=== PATIENT | male | born 1980 | race Caucasian/White ===

== ENCOUNTER → 2019-05-01 | Outpatient (CLI) | payer BC ==
[2012-04-28 22:18] VITALS: BP 159/97
[~2019-05-01] MED LIST: ATIVAN0.5 MG PO; BENADRYL50 MG PO; PREDNISONE10 MG; PROZAC40 MG PO
[2019-05-01 09:13] LABS: EOS # 0.1 (0.04-0.40); EOS % 1.7 % (0.0-4.0); HEMATOCRIT 45.9 % (42.0-52.0); HEMOGLOBIN 15.3 g/dL (13.5-18.0); MEAN CELL VOLUME 91 fl (78-100); MEAN CORPUSCULAR HEMOGLOBIN 30 pg (27-31); MEAN CORPUSCULAR HGB CONC 33 g/dL (33-37); MEAN PLATELET VOLUME 9.6 fl (7.4-10.4); MONO # 0.9 (0.20-0.80); NEU # 5.3 (1.40-6.50); PLATELET COUNT 250 K/mm3 (130-400); RED BLOOD COUNT 5.06 M/mm3 (4.20-5.60); RED CELL DISTRIBUTION WIDTH 13.2 % (11.5-14.5); WHITE BLOOD COUNT 8.3 K/mm3 (4.8-10.8)
[2019-05-01 09:19] LABS: POTASSIUM 4.3 mmol/L (3.5-5.1)
[2019-05-01 09:20] LABS: ALBUMIN 4.3 g/dL (3.5-5.0)
[2019-05-01 09:21] LABS: CALCIUM 9.8 mg/dL (8.3-10.5)
[2019-05-01 09:22] LABS: TOTAL PROTEIN 6.9 g/dL (6.4-8.3)
== END ==
LOC: LAB 09:01
PROVIDERS: Internal Medicine
DX: Z00.00 Encounter for general adult medical examination without abnormal findings (principal)

== ENCOUNTER → 2022-08-11 | Outpatient (CLI) | payer OTHER | LOC: RAD 07:47 | DX: D38.1 Neoplasm of uncertain behavior of trachea, bronchus and lung (principal) | CPT/HCPCS: Q9967 ==

== ENCOUNTER → 2023-11-04 | Outpatient (CLI) | payer BC ==
[2023-11-04 09:57] LABS: PH-URINE 5.5 (5.0 - 8.0); URINE APPEARANCE CLOUDY (CLEAR); URINE BILIRUBIN NEGATIVE (NEGATIVE); URINE BLOOD NEGATIVE (NEGATIVE); URINE COLOR YELLOW (YELLOW); URINE GLUCOSE NEGATIVE (NEGATIVE); URINE KETONE NEGATIVE (NEGATIVE); URINE LEUKOCYTE ESTERASE NEGATIVE (NEGATIVE); URINE NITRATE NEGATIVE (NEGATIVE); URINE PROTEIN(semi-quant) NEGATIVE (NEGATIVE); URINE WBC 0-1 /hpf (0-3)
== END ==
LOC: RAD 09:09
PROVIDERS: Nurse Practitioner Family
DX: N50.3 Cyst of epididymis (principal)